=== PATIENT | female | born 1995 | race Caucasian/White ===

== ENCOUNTER 2017-05-21 11:07 | Emergency (ER) | payer OTHER ==
[~2017-05-21] VITALS: Ht 157.5 cm; Wt 60.0 kg
[~2017-05-21 11:07] MED LIST: CIPRO500 MG OR; DEPO-PROVER150 MG/ML IM; MACROBID100 MG OR; MOTRIN600 MG/TAB PO; NAPROSYN500 MG PO; NO RX MEDS; RHO (D) IMMUN300 MCG IM; TUBERSOL5 MG/0.1 M ID; [UNRECOGNIZED DRUG - OTHER] PO
[2017-05-21 11:50] LABS: HEMATOCRIT 34.9 % (37.0-47.0); IMMATURE GRANULOCYTES 0.6 % (0.0-1.0); MEAN CELL VOLUME 73.2 fL CALC (80.0-100.0); MEAN CORPUSCULAR HGB 23.1 pG CALC (26.0-32.0); MEAN CORPUSCULAR HGB CONC 31.5 g/L CALC (32.0-36.0); NEUT# 7.31 thou/uL (2.00-7.15); RED BLOOD COUNT 4.77 mill/uL (4.20-5.60); RED CELL DISTRI WIDTH 18.6 % (11.5-15.5)
[2017-05-21 11:58] LABS: URINE BILIRUBIN - DIPSTICK NEGATIVE (NEGATIVE); URINE BLOOD DIPSTICK LARGE (NEGATIVE); URINE CLARITY CLOUDY; URINE COLOR RED; URINE GLUCOSE - DIPSTICK NEGATIVE (NEGATIVE); URINE KETONE NEGATIVE (NEGATIVE); URINE LEUK ESTERASE NEGATIVE (NEGATIVE); URINE NITRITE - DIPSTICK NEGATIVE (Negative); URINE PH 5.5 (4.5-8.0); URINE PROTEIN - DIPSTICK 100 mg/dL (NEG-TRACE); URINE SPECIFIC GRAVITY >=1.030; URINE UROBILINOGEN - DIPSTICK 0.2 E.U./dL (0.2)
[2017-05-21 12:00] LABS: URINE RBC >100 RBC/hpf (0-5)
[2017-05-21 12:15] LABS: ALBUMIN 3.6 g/dL (3.2-5.0); ALKALINE PHOSPHATASE 53 u/l (38-126); ANION GAP 14 (6-22 (CALC)); BILIRUBIN, TOTAL 0.3 mg/dL (0.0-1.4); BUN 11 mg/dL (7-17); BUN/CREATININE RATIO 17 (12-20 (CALC)); CALCIUM 8.6 mg/dL (8.4-10.2); CARBON DIOXIDE 19 mmol/l (22-30); CHLORIDE 109 mmol/l (95-108); CREATININE 0.6 mg/dL (0.5-1.0); GFR > 60 ML/MIN (>=60 (CALC)); GFR FOR AFR.AMER. > 60 ML/MIN (>=60 (CALC)); GLUCOSE 99 mg/dL (65-105); POTASSIUM 4.2 mmol/l (3.5-5.1); SGOT/AST 15 u/l (14-36); SGPT/ALT 23 u/l (9-52); SODIUM 137 mmol/l (137-146); TOTAL PROTEIN 6.5 g/dL (6.3-8.2)
[2017-05-21 12:31] LABS: BETA-HCG, QUANT(RESULT NUMBER) 1900 mIU/mL
[2017-05-21 13:23] VITALS: BP 109/65
== END 2017-05-21 13:40 | disposition home or self-care (01) | DRG 778 ==
LOC: ED 11:07
PROVIDERS: Emergency Medicine
DX: O20.0 Threatened abortion (principal); J45.909 Unspecified asthma, uncomplicated; O99.511 Diseases of the respiratory system complicating pregnancy, first trimester; Z3A.08 8 weeks gestation of pregnancy

== ENCOUNTER 2017-09-06 12:36 | Emergency (ER) | payer OTHER ==
[~2017-09-06] VITALS: Ht 157.5 cm; Wt 45.0 kg
[2017-09-06 13:32] LABS: URINE BILIRUBIN - DIPSTICK NEGATIVE (NEGATIVE); URINE BLOOD DIPSTICK NEGATIVE (NEGATIVE); URINE CLARITY CLEAR; URINE COLOR YELLOW; URINE GLUCOSE - DIPSTICK NEGATIVE (NEGATIVE); URINE KETONE NEGATIVE (NEGATIVE); URINE LEUK ESTERASE NEGATIVE (NEGATIVE); URINE NITRITE - DIPSTICK NEGATIVE (Negative); URINE PROTEIN - DIPSTICK NEGATIVE (NEG-TRACE); URINE SPECIFIC GRAVITY 1.025; URINE UROBILINOGEN - DIPSTICK 0.2 E.U./dL (0.2)
[2017-09-06 13:33] LABS: COCAINE POSITIVE (NEGATIVE)
[2017-09-06 13:33] LABS: ALBUMIN 3.6 g/dL (3.2-5.0); ALKALINE PHOSPHATASE 35 u/l (38-126); AMYLASE 35 u/l (30-110); ANION GAP 12 (6-22 (CALC)); BILIRUBIN, TOTAL 0.5 mg/dL (0.0-1.4); BUN 5 mg/dL (7-17); BUN/CREATININE RATIO 8 (12-20 (CALC)); CALCIUM 8.8 mg/dL (8.4-10.2); CARBON DIOXIDE 25 mmol/l (22-30); CHLORIDE 105 mmol/l (95-108); CREATININE 0.6 mg/dL (0.5-1.0); GFR > 60 ML/MIN (>=60 (CALC)); GFR FOR AFR.AMER. > 60 ML/MIN (>=60 (CALC)); GLUCOSE 104 mg/dL (65-105); HEMATOCRIT 35.6 % (37.0-47.0); HEMOGLOBIN 10.9 g/dl (12.0-16.0); IMMATURE GRANULOCYTES 0.7 % (0.0-1.0); LIPASE 27 u/l (23-300); MEAN CELL VOLUME 70.9 fL CALC (80.0-100.0); MEAN CORPUSCULAR HGB 21.7 pG CALC (26.0-32.0); MEAN CORPUSCULAR HGB CONC 30.6 g/L CALC (32.0-36.0); NEUT# 3.9 thou/uL (2.00-7.15); POTASSIUM 2.8 mmol/l (3.5-5.1); RED BLOOD COUNT 5.02 mill/uL (4.20-5.60); RED CELL DISTRI WIDTH 19.9 % (11.5-15.5); SGOT/AST 16 u/l (14-36); SGPT/ALT 28 u/l (9-52); SODIUM 139 mmol/l (137-146); TOTAL PROTEIN 6.3 g/dL (6.3-8.2)
[2017-09-06 13:34] LABS: BARBITURATES NEGATIVE (NEGATIVE); METHADONE NEGATIVE (NEGATIVE); OXCYCODONE POSITIVE (NEGATIVE); TETRAHYDROCANNABIONOL POSITIVE (NEGATIVE); TRICYLIC ANTIDEPRESSANTS NEGATIVE (NEGATIVE)
[2017-09-06 13:47] LABS: MYOGLOBIN 16 ng/mL (0 - 62)
[2017-09-06] MEDS ORDERED: PHENERGAN25 M1 PR (14:37)
[2017-09-06] MEDS ORDERED: PHENERGAN25 MG/TAB PO (14:37)
[2017-09-06] MEDS ORDERED: ZOFRAN ODT4 MG PO (14:37)
[2017-09-06 14:58] VITALS: BP 120/79
== END 2017-09-06 16:03 | disposition home or self-care (01) | DRG 781 ==
LOC: ED 12:36
PROVIDERS: Emergency Medicine
DX: O26.891 Other specified pregnancy related conditions, first trimester (principal); E87.6 Hypokalemia; O99.321 Drug use complicating pregnancy, first trimester; O99.511 Diseases of the respiratory system complicating pregnancy, first trimester; M54.5 Low back pain; J45.909 Unspecified asthma, uncomplicated; F19.10 Other psychoactive substance abuse, uncomplicated; Z3A.01 Less than 8 weeks gestation of pregnancy

== ENCOUNTER 2018-03-28 01:35 | Emergency (ER) | payer OTHER ==
[~2018-03-28] VITALS: Ht 157.5 cm; Wt 64.0 kg
[~2018-03-28 01:35] MED LIST changes: +PHENERGAN25 M1 PR; +PHENERGAN25 MG/TAB PO; +ZOFRAN ODT4 MG PO
[2018-03-28 01:37] VITALS: BP 110/68
== END 2018-03-28 02:05 | DRG 778 ==
LOC: ED 01:35
DX: O60.03 Preterm labor without delivery, third trimester (principal); O99.323 Drug use complicating pregnancy, third trimester; F12.90 Cannabis use, unspecified, uncomplicated; Z3A.36 36 weeks gestation of pregnancy

== ENCOUNTER 2018-06-15 08:08 | Emergency (ER) | payer OTHER ==
[~2018-06-15] VITALS: Ht 157.5 cm; Wt 60.0 kg
[2018-06-15] MEDS ORDERED: VOLTAREN - GENE75 MG PO (09:11)
[2018-06-15] MEDS ORDERED: TRAMADOL HCL50 MG PO (09:11)
[2018-06-15 10:03] VITALS: BP 116/76
== END 2018-06-15 10:03 | disposition home or self-care (01) ==
LOC: ED 08:08
DX: S42.032A Displaced fracture of lateral end of left clavicle, initial encounter for closed fracture (principal); S10.91XA Abrasion of unspecified part of neck, initial encounter; Y08.89XA Assault by other specified means, initial encounter; W01.198A Fall on same level from slipping, tripping and stumbling with subsequent striking against other object, initial encounter; Y93.19 Activity, other involving water and watercraft; Y92.89 Other specified places as the place of occurrence of the external cause

== ENCOUNTER 2019-04-27 09:06 | Emergency (ER) | payer SELFPAY ==
[~2019-04-27] VITALS: Ht 157.5 cm; Wt 45.0 kg
[~2019-04-27 09:06] MED LIST changes: +TRAMADOL HCL50 MG PO; +VOLTAREN - GENE75 MG PO
[2019-04-27 10:03] LABS: IMMATURE GRANULOCYTES 0.7 % (0.0-5.0); MEAN CORPUSCULAR HGB 28.1 pG CALC (26.0-32.0); NEUT# 7.71 thou/uL (2.00-7.15); RED BLOOD COUNT 5.34 mill/uL (4.20-5.60); RED CELL DISTRI WIDTH 14.4 % (11.5-15.5)
[2019-04-27 10:16] LABS: ALBUMIN 4.3 g/dL (3.2-5.0); BILIRUBIN, TOTAL 0.7 mg/dL (0.0-1.4); BUN 19 mg/dL (7-17); BUN/CREATININE RATIO 27 (12-20 (CALC)); CARBON DIOXIDE 22 mmol/l (22-30); CHLORIDE 106 mmol/l (95-108); CREATININE 0.7 mg/dL (0.5-1.0); GFR > 60 ML/MIN (>=60 (CALC)); GFR FOR AFR.AMER. > 60 ML/MIN (>=60 (CALC)); LIPASE 93 u/l (23-300); SODIUM 140 mmol/l (137-146); TOTAL PROTEIN 7.3 g/dL (6.3-8.2)
[2019-04-27 10:17] LABS: ALKALINE PHOSPHATASE 54 u/l (38-126); ANION GAP 16 (6-22 (CALC)); SGOT/AST 34 u/l (14-36)
[2019-04-27 10:20] LABS: POTASSIUM 3.7 mmol/l (3.5-5.1)
[2019-04-27 10:21] LABS: HEMATOCRIT 45.4 % (37.0-47.0)
[2019-04-27 11:32] LABS: URINE BLOOD DIPSTICK LARGE (NEGATIVE); URINE GLUCOSE - DIPSTICK NEGATIVE (NEGATIVE); URINE KETONE TRACE mg/dL (NEGATIVE); URINE LEUK ESTERASE NEGATIVE (NEGATIVE); URINE NITRITE - DIPSTICK NEGATIVE (Negative); URINE PH 5.5 (4.5-8.0); URINE PROTEIN - DIPSTICK 100 mg/dL (NEG-TRACE); URINE SPECIFIC GRAVITY >=1.030
[2019-04-27 11:33] LABS: URINE BILIRUBIN - DIPSTICK SMALL (NEGATIVE); URINE COLOR DK. YELLOW; URINE EPITHELIAL CELLS FEW EPI/hpf (0-FEW); URINE MUCUS FEW hpf (NONE-FEW)
[2019-04-27] MEDS ORDERED: ONDANSETRON4 MG PO (12:05)
[2019-04-27 12:08] VITALS: BP 116/78
== END 2019-04-27 12:30 | disposition home or self-care (01) | DRG 392 ==
LOC: ED 09:06
PROVIDERS: Family Medicine
DX: K52.9 Noninfective gastroenteritis and colitis, unspecified (principal); R10.84 Generalized abdominal pain; R10.32 Left lower quadrant pain; R10.31 Right lower quadrant pain; R11.2 Nausea with vomiting, unspecified
CPT/HCPCS: Q9967

== ENCOUNTER 2019-08-05 13:13 | Emergency (ER) | payer SELFPAY ==
[~2019-08-05 13:13] MED LIST changes: +ONDANSETRON4 MG PO
== END 2019-08-05 13:47 | disposition left against medical advice (07) | DRG 951 ==
LOC: ED 13:13 → LWOBS 13:46
DX: Z91.19 Patient's noncompliance with other medical treatment and regimen (principal)

== ENCOUNTER 2019-12-11 | Emergency (ER) | payer SELFPAY ==
[2019-12-12] MEDS ORDERED: ROBITUSSIN AC10 ML PO (00:25)
[2019-12-12] MEDS ORDERED: AMOXICILLIN500 MG PO (00:25)
== END 2019-12-12 00:45 | disposition home or self-care (01) | DRG 153 ==
DX: J02.0 Streptococcal pharyngitis (principal); I77.89 Other specified disorders of arteries and arterioles; F17.210 Nicotine dependence, cigarettes, uncomplicated

== ENCOUNTER 2021-02-13 20:42 | Emergency (ER) | payer OTHER ==
[~2021-02-13] VITALS: Ht 157.5 cm; Wt 60.0 kg
[~2021-02-13 20:42] MED LIST changes: +AMOXICILLIN500 MG PO; +ROBITUSSIN AC10 ML PO
[2021-02-13 21:16] LABS: HEMOGLOBIN 15.5 g/dl (12.0-16.0); IMMATURE GRANULOCYTES 0.7 % (0.0-5.0); MEAN CORPUSCULAR HGB 29.4 pG CALC (26.0-32.0); NEUT# 6.61 thou/uL (2.00-7.15); RED BLOOD COUNT 5.28 mill/uL (4.20-5.60); RED CELL DISTRI WIDTH 17.3 % (11.5-15.5)
[2021-02-13 21:19] LABS: ALBUMIN 3.6 g/dL (3.2-5.0); AMYLASE 65 u/l (30-110); ANION GAP 10 (6-22 (CALC)); BILIRUBIN, TOTAL 0.8 mg/dL (0.0-1.4); BUN 9 mg/dL (7-17); BUN/CREATININE RATIO 17 (12-20 (CALC)); CARBON DIOXIDE 25 mmol/l (22-30); CHLORIDE 104 mmol/l (95-108); CREATININE 0.5 mg/dL (0.5-1.0); GFR > 60 ML/MIN (>=60 (CALC)); GFR FOR AFR.AMER. > 60 ML/MIN (>=60 (CALC)); LIPASE 67 u/l (23-300); POTASSIUM 4.3 mmol/l (3.5-5.1); SGOT/AST 28 u/l (14-36); SODIUM 133 mmol/l (137-146); TOTAL PROTEIN 7.2 g/dL (6.3-8.2)
[2021-02-13 21:24] LABS: ALKALINE PHOSPHATASE 132 u/l (38-126)
[2021-02-13 21:26] LABS: ACT PARTIAL THROMBO TIME 24.9 SECONDS (20.0-32.5); PROTHROMBIN TIME 9.7 SECONDS (9.0-12.5)
[2021-02-13 21:31] LABS: MYOGLOBIN 14 ng/mL (0 - 62)
[2021-02-13 21:40] LABS: D-DIMER 1.06 mg/L (0.19-0.60)
[2021-02-13 22:35] LABS: URINE BILIRUBIN - DIPSTICK NEGATIVE (NEGATIVE); URINE BLOOD DIPSTICK NEGATIVE (NEGATIVE); URINE COLOR YELLOW; URINE GLUCOSE - DIPSTICK NEGATIVE (NEGATIVE); URINE KETONE NEGATIVE (NEGATIVE); URINE PH 6.5 (4.5-8.0); URINE PROTEIN - DIPSTICK NEGATIVE (NEG-TRACE); URINE SPECIFIC GRAVITY 1.025; URINE UROBILINOGEN - DIPSTICK 0.2 E.U./dL (0.2)
[2021-02-13 22:36] LABS: URINE LEUK ESTERASE SMALL (NEGATIVE); URINE NITRITE - DIPSTICK NEGATIVE (Negative)
[2021-02-13 22:42] LABS: URINE RBC 0-2 RBC/hpf (0-5); URINE SQUAMOUS EPITHELIAL CELL MODERATE EPI/hpf (0-FEW)
[2021-02-13 23:55] VITALS: BP 116/83
== END 2021-02-13 23:57 | disposition short-term general hospital (02) | DRG 832 ==
LOC: ED 20:42
PROVIDERS: Family Medicine
DX: O60.03 Preterm labor without delivery, third trimester (principal); O99.413 Diseases of the circulatory system complicating pregnancy, third trimester; I38 Endocarditis, valve unspecified; O99.513 Diseases of the respiratory system complicating pregnancy, third trimester; J45.909 Unspecified asthma, uncomplicated; O99.333 Smoking (tobacco) complicating pregnancy, third trimester; F17.200 Nicotine dependence, unspecified, uncomplicated; Z99.81 Dependence on supplemental oxygen; Z3A.34 34 weeks gestation of pregnancy; Z20.822 Contact with and (suspected) exposure to COVID-19

== ENCOUNTER 2021-09-09 20:01 | Emergency (ER) | payer OTHER ==
[~2021-09-09] VITALS: Ht 157.5 cm; Wt 55.0 kg
[2021-09-09 20:43] LABS: HEMATOCRIT 50.8 % (37.0-47.0); HEMOGLOBIN 16.4 g/dl (12.0-16.0); IMMATURE GRANULOCYTES 0.6 % (0.0-5.0); MEAN CELL VOLUME 87.9 fL CALC (80.0-100.0); MEAN CORPUSCULAR HGB 28.4 pG CALC (26.0-32.0); MEAN CORPUSCULAR HGB CONC 32.3 g/dL CAL (32.0-36.0); NEUT# 5.07 thou/uL (2.00-7.15); RED BLOOD COUNT 5.78 mill/uL (4.20-5.60); RED CELL DISTRI WIDTH 13.7 % (11.5-15.5)
[2021-09-09 21:02] LABS: ALKALINE PHOSPHATASE 62 u/l (38-126); BUN 13 mg/dL (7-17); BUN/CREATININE RATIO 20 (12-20 (CALC)); CHLORIDE 111 mmol/l (95-108); CREATININE 0.7 mg/dL (0.5-1.0); GFR > 60 ML/MIN (>=60 (CALC)); GFR FOR AFR.AMER. > 60 ML/MIN (>=60 (CALC)); SGOT/AST 23 u/l (14-36); SODIUM 140 mmol/l (137-146)
[2021-09-09 21:06] LABS: ALBUMIN 4.4 g/dL (3.2-5.0); ANION GAP 17 (6-22 (CALC)); BILIRUBIN, TOTAL 0.8 mg/dL (0.0-1.4); CARBON DIOXIDE 16 mmol/l (22-30); TOTAL PROTEIN 8.2 g/dL (6.3-8.2)
[2021-09-09 21:14] LABS: MYOGLOBIN 15 ng/mL (0 - 62)
[2021-09-09 22:12] LABS: PROTHROMBIN TIME 10.4 SECONDS (9.0-12.5)
[2021-09-09 23:04] VITALS: BP 120/85
== END 2021-09-09 23:05 | disposition short-term general hospital (02) | DRG 282 ==
LOC: ED 20:01
PROVIDERS: Emergency Medicine
DX: I21.4 Non-ST elevation (NSTEMI) myocardial infarction (principal); R09.02 Hypoxemia; I27.20 Pulmonary hypertension, unspecified; J45.909 Unspecified asthma, uncomplicated; F17.200 Nicotine dependence, unspecified, uncomplicated; T41.5X6A Underdosing of therapeutic gases, initial encounter; Z91.120 Patient's intentional underdosing of medication regimen due to financial hardship; Z99.81 Dependence on supplemental oxygen; Z20.822 Contact with and (suspected) exposure to COVID-19
CPT/HCPCS: J1644; Q9967

== ENCOUNTER 2025-01-05 19:32 | Emergency (ER) | payer OTHER ==
[~2025-01-05] VITALS: Ht 157.5 cm; Wt 50.0 kg
[2025-01-05] MEDS ORDERED: PENICILLN VK500 MG PO (20:39)
[2025-01-05] MEDS ORDERED: NAPROXEN500 MG PO (20:40)
[2025-01-05] MEDS ORDERED: NAPROXEN 250 MG/TAB PO ONE (20:45)
[2025-01-05] MEDS ORDERED: PENicillin V POTASSIUM 500 MG/TAB PO ONE (20:45)
[2025-01-05 22:13] VITALS: BP 100/74
== END 2025-01-05 22:31 | disposition home or self-care (01) ==
LOC: ED 19:32
DX: K04.7 Periapical abscess without sinus (principal); J06.9 Acute upper respiratory infection, unspecified; J45.909 Unspecified asthma, uncomplicated; F17.200 Nicotine dependence, unspecified, uncomplicated; Z20.822 Contact with and (suspected) exposure to COVID-19

== ENCOUNTER 2025-01-12 11:59 | Emergency (ER) | payer OTHER ==
[2025-01-12] VITALS (36 sets, daily range): BP systolic 57–177; BP diastolic 34–147
[~2025-01-12] VITALS: Ht 157.5 cm; Wt 47.0 kg
[~2025-01-12 11:59] MED LIST changes: +NAPROXEN500 MG PO; +PENICILLN VK500 MG PO
[2025-01-12] MEDS ORDERED: SODIUM CHLORIDE 0.9% 1,000 ML IV STA (12:22)
[2025-01-12] MEDS ORDERED: NALOXONE HCL 0.4 MG/ML 1ML AMP IV ONE (12:25)
[2025-01-12] MEDS ORDERED: ONDANSETRON HCl 4 MG/2 ML SDV IV STA (12:29)
[2025-01-12] MEDS ORDERED: Pantoprazole Sodium 40 MG VIAL (Protonix) IV STA (12:29)
[2025-01-12 12:40] LABS: BASO% 0.4 % (0-3); EOS% 0.7 % (0-8); HEMATOCRIT 49.3 % (37.0-47.0); HEMOGLOBIN 16.6 g/dl (12.0-16.0); IMMATURE GRANULOCYTES 0.4 % (0.0-5.0); LYMPH% 13.4 % (15-41); MEAN CELL VOLUME 87.9 fL CALC (80.0-100.0); MEAN CORPUSCULAR HGB 29.6 pG CALC (26.0-32.0); MEAN CORPUSCULAR HGB CONC 33.7 g/dL CAL (32.0-36.0); MONO% 5.4 % (2-13); NEUT# 10.2 thou/uL (2.00-7.15); NEUT% 79.7 % (42-76); RED BLOOD COUNT 5.61 mill/uL (4.20-5.60); RED CELL DISTRI WIDTH 13.8 % (11.5-15.5)
[2025-01-12 12:47] LABS: CREATININE 0.7 mg/dL (0.5-1.0); POTASSIUM 3.9 mmol/l (3.5-5.1)
[2025-01-12 12:51] LABS: BILIRUBIN, TOTAL 1.2 mg/dL (0.02-1.3)
[2025-01-12 14:31] LABS: URINE BILIRUBIN - DIPSTICK Negative (NEGATIVE); URINE BLOOD DIPSTICK Negative (NEGATIVE); URINE GLUCOSE - DIPSTICK Negative (NEGATIVE); URINE KETONE Trace mg/dL (NEGATIVE); URINE LEUK ESTERASE Negative (NEGATIVE); URINE NITRITE - DIPSTICK Negative (Negative); URINE PH 5.5 (4.5-8.0); URINE PROTEIN - DIPSTICK 30 mg/dL (NEG-TRACE); URINE SPECIFIC GRAVITY 1.025; URINE UROBILINOGEN - DIPSTICK 0.2 E.U./dL (0.2)
[2025-01-12 14:37] LABS: URINE COLOR Yellow
[2025-01-12 14:39] LABS: URINE EPITHELIAL CELLS MODERATE EPI/hpf (0-FEW)
[2025-01-12] MEDS ORDERED: KETOROLAC TROMETHAMINE 15 MG/ML SDV IV STA (15:14)
[2025-01-12] MEDS ORDERED: MORPHINE SULFATE 4 MG/ML VIAL IV STA (15:14)
[2025-01-12] MEDS ORDERED: PIPERACILLIN Sodium-Tazobactam 3.375 GM in SODIUM CHLORIDE 0.9% 100 ML IV ONE (17:30)
[2025-01-12] MEDS ORDERED: VANCOMYCIN HCL 1 GM in SODIUM CHLORIDE 0.9% 500 ML IV ONE (17:30)
[2025-01-12] MEDS ORDERED: PROCHLORPERAZINE EDISYLATE 10 MG/2 ML SDV IV ONE (18:30)
[2025-01-12] MEDS ORDERED: PROTONIX40 M2 PO (18:46)
[2025-01-12] MEDS ORDERED: DICYCLOMINE HYD10 MG PO (18:46)
[2025-01-12] MEDS ORDERED: AMOX/K CLAV875 M1 PO (18:46)
[2025-01-12] MEDS ORDERED: ZOFRAN4 MG/TAB PO (18:46)
== END 2025-01-12 21:31 | disposition home or self-care (01) ==
LOC: ED 11:59
PROVIDERS: Nurse Practitioner
DX: K29.70 Gastritis, unspecified, without bleeding (principal); D72.829 Elevated white blood cell count, unspecified; I27.82 Chronic pulmonary embolism; I27.20 Pulmonary hypertension, unspecified; T46 Poisoning by, adverse effect of and underdosing of agents primarily affecting the cardiovascular system; Z91.128 Patient's intentional underdosing of medication regimen for other reason; F17.200 Nicotine dependence, unspecified, uncomplicated; Z79.01 Long term (current) use of anticoagulants
CPT/HCPCS: J0780; J1885; J2405; J2470; J2543; J3370; Q9967

== ENCOUNTER 2025-01-14 10:44 | Emergency (ER) | payer OTHER ==
[2025-01-14] VITALS (15 sets, daily range): BP systolic 82–124; BP diastolic 49–109
[~2025-01-14] VITALS: Ht 157.5 cm; Wt 48.0 kg
[~2025-01-14 10:44] MED LIST changes: +AMOX/K CLAV875 M1 PO; +DICYCLOMINE HYD10 MG PO; +PROTONIX40 M2 PO; +ZOFRAN4 MG/TAB PO
[2025-01-14] MEDS ORDERED: SODIUM CHLORIDE 0.9% 1,000 ML IV ONE ×2 (10:50→13:25)
[2025-01-14] MEDS ORDERED: MORPHINE SULFATE 4 MG/ML VIAL IV ONE (11:00)
[2025-01-14] MEDS ORDERED: PROMETHAZINE HCL 25 MG/ML AMP IM ONE (11:05)
[2025-01-14 11:14] LABS: BASO% 0.1 % (0-3); EOS% 0.1 % (0-8); HEMATOCRIT 46.9 % (37.0-47.0); HEMOGLOBIN 15.9 g/dl (12.0-16.0); IMMATURE GRANULOCYTES 0.3 % (0.0-5.0); MEAN CELL VOLUME 87.3 fL CALC (80.0-100.0); MEAN CORPUSCULAR HGB 29.6 pG CALC (26.0-32.0); MEAN CORPUSCULAR HGB CONC 33.9 g/dL CAL (32.0-36.0); MONO% 4.7 % (2-13); NEUT# 9.2 thou/uL (2.00-7.15); NEUT% 83.8 % (42-76); RED BLOOD COUNT 5.37 mill/uL (4.20-5.60); RED CELL DISTRI WIDTH 13.8 % (11.5-15.5)
[2025-01-14 11:24] LABS: ALBUMIN 3.8 g/dL (3.2-5.0); BILIRUBIN, TOTAL 0.7 mg/dL (0.02-1.3); CREATININE 0.7 mg/dL (0.5-1.0); POTASSIUM 3.9 mmol/l (3.5-5.1); TOTAL PROTEIN 6.5 g/dL (6.3-8.2)
[2025-01-14] MEDS ORDERED: ZOFRAN4 MG/TAB PO (13:05)
[2025-01-14] MEDS ORDERED: PIPERACILLIN Sodium-Tazobactam 3.375 GM in SODIUM CHLORIDE 0.9% 100 ML IV ONE (13:25)
[2025-01-14] MEDS ORDERED: SODIUM CHLORIDE 0.9% 500 ML IV ONE (15:05)
[2025-01-14 15:22] LABS: URINE BILIRUBIN - DIPSTICK Negative (NEGATIVE); URINE BLOOD DIPSTICK Negative (NEGATIVE); URINE GLUCOSE - DIPSTICK Negative (NEGATIVE); URINE KETONE Negative (NEGATIVE); URINE LEUK ESTERASE Negative (NEGATIVE); URINE NITRITE - DIPSTICK Negative (Negative); URINE PROTEIN - DIPSTICK Negative (NEG-TRACE); URINE SPECIFIC GRAVITY 1.015; URINE UROBILINOGEN - DIPSTICK 0.2 E.U./dL (0.2)
[2025-01-14 15:24] LABS: URINE COLOR Yellow
== END 2025-01-14 15:26 | disposition short-term general hospital (02) ==
LOC: ED 10:44
PROVIDERS: Family Medicine
DX: K81.0 Acute cholecystitis (principal); I27.20 Pulmonary hypertension, unspecified; J45.909 Unspecified asthma, uncomplicated; F17.200 Nicotine dependence, unspecified, uncomplicated
CPT/HCPCS: J2543; J2550; Q9967